=== PATIENT | male | born 1950 | race African-American/Black ===

== ENCOUNTER 2018-07-20 09:12 | Day surgery (SDC) | payer MEDICARE, OTHER ==
[~2018-07-20] VITALS: Ht 172.7 cm; Wt 94.0 kg
[~2018-07-20 09:12] MED LIST: ALEN1TAB3 PO; ALIS300T PO; ASPI81TA42 PO; CALC500T62 PO; CHLO25TA3 PO; DOCU240C PO; DUTA.5 PO; LANS30CA55 PO; LORA-366 PO; MILN50TA PO; MOME17N; OXYC30TA PO; OXYM30TA PO; POTA8TAB4 PO; ROSU10TA22 PO; SODIUM CHLORIDE 0.9% 1,000 ML IV ONE; SPIR25 PO; TAMS0.4C32 PO; VALA500T38 PO; VALS320T2 PO; VERA240C4 PO; [UNRECOGNIZED DRUG - CODE] PO
[2018-07-20] MEDS ORDERED: PROPOFOL 1% 20 ML VIAL IVP ONE (09:13)
[2018-07-20] MEDS ORDERED: LIDOCAINE/PF 2% 5 ML VIAL IM ONE (09:13)
[2018-07-20] MEDS ORDERED: CLOP75TA3 PO (11:48)
[2018-07-20] MEDS ORDERED: OXYGEN THERAPY IH SCH (20:00)
== END 2018-07-23 13:00 | disposition home or self-care (01) ==
LOC: SURGERY 09:12
PROVIDERS: ATTEND Specialist
DX: K22.10 Ulcer of esophagus without bleeding (principal); I10 Essential (primary) hypertension; B37.81 Candidal esophagitis; G89.29 Other chronic pain; I73.9 Peripheral vascular disease, unspecified; J44.9 Chronic obstructive pulmonary disease, unspecified; F17.210 Nicotine dependence, cigarettes, uncomplicated; E66.9 Obesity, unspecified; Z68.30 Body mass index [BMI] 30.0-30.9, adult; Z85.46 Personal history of malignant neoplasm of prostate; Z79.82 Long term (current) use of aspirin; F10.10 Alcohol abuse, uncomplicated; Z79.899 Other long term (current) drug therapy; Z98.890 Other specified postprocedural states
CPT/HCPCS: 43239; 88305; 88312; C1769; J2704; J3490

== ENCOUNTER 2019-01-03 06:15 | Day surgery (SDC) | payer MEDICARE, OTHER ==
[~2019-01-03] VITALS: Ht 172.7 cm; Wt 93.2 kg
[~2019-01-03 06:15] MED LIST changes: -ASPI81TA42 PO; +CLOP75TA3 PO
[2019-01-03] MEDS ORDERED: PROPOFOL 1% 20 ML VIAL IVP ONE (06:16)
[2019-01-03] MEDS ORDERED: LIDOCAINE/PF 2% 5 ML VIAL IM ONE (06:16)
[2019-01-03] MEDS ORDERED: EPINEPHrine 1:10,000 [1 MG/10 ML] SYRINGE ONE (07:41)
[2019-01-03 08:01] LABS: GLUCOMETER DEV NAME(LOC) SDS.; GLUCOSE,POINT OF CARE 98 MG/DL (70-110)
[2019-01-03] MEDS ORDERED: SIMETHICONE DROPS 40 MG/0.6 ML SOLUTION 30 ML ONE (08:08)
[2019-01-03] MEDS ORDERED: POVIDONE-IODINE 10% 15 ML SOLUTION UD ONE (09:16)
== END 2019-01-03 10:40 | disposition home or self-care (01) ==
LOC: SURGERY 06:15
PROVIDERS: ATTEND Student in an Organized Health Care Education/Training Program
DX: K63.5 Polyp of colon (principal); K29.50 Unspecified chronic gastritis without bleeding; D12.4 Benign neoplasm of descending colon; K64.8 Other hemorrhoids; K22.8 Other specified diseases of esophagus; I10 Essential (primary) hypertension; I25.10 Atherosclerotic heart disease of native coronary artery without angina pectoris; I73.9 Peripheral vascular disease, unspecified; G89.29 Other chronic pain; F17.210 Nicotine dependence, cigarettes, uncomplicated; Z86.73 Personal history of transient ischemic attack (TIA), and cerebral infarction without residual deficits; Z86.19 Personal history of other infectious and parasitic diseases; Z85.46 Personal history of malignant neoplasm of prostate; Z72.89 Other problems related to lifestyle; Z79.899 Other long term (current) drug therapy; Z88.0 Allergy status to penicillin; Z95.5 Presence of coronary angioplasty implant and graft; Z97.3 Presence of spectacles and contact lenses; Z98.890 Other specified postprocedural states
CPT/HCPCS: 45385; 45380; 43239; 82962; 88305; 88312; 88313; 93005; C1769; J2704; J3490; J7030; J0171

== ENCOUNTER 2020-01-16 12:00 | Day surgery (SDC) | payer MEDICARE, OTHER ==
[~2020-01-16] VITALS: Ht 174 cm; Wt 95.5 kg
[~2020-01-16 12:00] MED LIST changes: +CLOP-31 PO; -CLOP75TA3 PO; +SODIUM CHLORIDE 0.9% 1,000 ML ONE; +TAMS-13 PO; -TAMS0.4C32 PO; -VALA500T38 PO; +VALA500T42 PO
== END 2020-01-16 14:35 | disposition home or self-care (01) ==
LOC: SURGERY 12:00
PROVIDERS: ATTEND Student in an Organized Health Care Education/Training Program
DX: K29.50 Unspecified chronic gastritis without bleeding (principal); K74.60 Unspecified cirrhosis of liver; I25.10 Atherosclerotic heart disease of native coronary artery without angina pectoris; E78.5 Hyperlipidemia, unspecified; I10 Essential (primary) hypertension; Z20.828 Contact with and (suspected) exposure to other viral communicable diseases; F15.10 Other stimulant abuse, uncomplicated
CPT/HCPCS: 43239; 87635; 88305; 88312; 88313; 93005; J7030

== ENCOUNTER 2022-04-05 11:59 | Emergency (ER) | payer MEDICARE, OTHER ==
[~2022-04-05] VITALS: Ht 172.7 cm; Wt 104.5 kg
[~2022-04-05 11:59] MED LIST changes: -CLOP-31 PO; +CLOP75TA60 PO; -POTA8TAB4 PO; -ROSU10TA22 PO; +ROSU10TA72 PO; +SLOWK8 PO; -SODIUM CHLORIDE 0.9% 1,000 ML IV ONE; -SODIUM CHLORIDE 0.9% 1,000 ML ONE; +SPIR-37 PO; -SPIR25 PO
[2022-04-05] MEDS ORDERED: OxyCODONE HCL/ACETAMINOPHEN 5-325 MG TABLET PO ONE (13:00)
[2022-04-05 13:10] VITALS: BP 135/74
== END 2022-04-05 14:27 | disposition home or self-care (01) ==
LOC: EMS 12:08
DX: S90.32XA Contusion of left foot, initial encounter (principal); I25.10 Atherosclerotic heart disease of native coronary artery without angina pectoris; I11.9 Hypertensive heart disease without heart failure; E78.00 Pure hypercholesterolemia, unspecified; M81.0 Age-related osteoporosis without current pathological fracture; F14.90 Cocaine use, unspecified, uncomplicated; F15.90 Other stimulant use, unspecified, uncomplicated; F12.90 Cannabis use, unspecified, uncomplicated; Z87.891 Personal history of nicotine dependence; Z98.890 Other specified postprocedural states; Z88.0 Allergy status to penicillin; V29.99XA Rider (driver) (passenger) of other motorcycle injured in unspecified traffic accident, initial encounter; Y93.89 Activity, other specified; Y92.89 Other specified places as the place of occurrence of the external cause; Y99.8 Other external cause status
CPT/HCPCS: 82962; 99284

== ENCOUNTER 2022-07-18 12:33 | Emergency (ER) | payer MEDICARE, OTHER ==
[~2022-07-18] VITALS: Ht 172.7 cm; Wt 94.5 kg
[2022-07-18 12:56] LABS: GLUCOSE,POINT OF CARE 117 MG/DL (70-110)
[2022-07-18 17:01] VITALS: BP 135/80
== END 2022-07-18 17:48 | disposition home or self-care (01) ==
LOC: EMS 12:35
DX: S50.02XA Contusion of left elbow, initial encounter (principal); M25.532 Pain in left wrist; M25.522 Pain in left elbow; M25.551 Pain in right hip; I25.10 Atherosclerotic heart disease of native coronary artery without angina pectoris; I10 Essential (primary) hypertension; E78.00 Pure hypercholesterolemia, unspecified; F12.90 Cannabis use, unspecified, uncomplicated; Z98.890 Other specified postprocedural states; Z88.0 Allergy status to penicillin; W19.XXXA Unspecified fall, initial encounter; Y93.01 Activity, walking, marching and hiking; Y92.89 Other specified places as the place of occurrence of the external cause; Y99.9 Unspecified external cause status
CPT/HCPCS: 71045; 73502; 82962; 99283

== ENCOUNTER 2023-05-16 12:14 | Emergency (ER) | payer MEDICARE, OTHER ==
[~2023-05-16] VITALS: Ht 172.7 cm; Wt 85.0 kg
[~2023-05-16 12:14] MED LIST changes: -DUTA.5 PO; +DUTA0.5C38 PO; -OXYC30TA PO; -TAMS-13 PO; +TAMS0.4C94 PO
[2023-05-16 12:38] VITALS: TEMP 97.9
[2023-05-16] MEDS ORDERED: KETOROLAC TROMETHAMINE 60 MG/2 ML VIAL IM ONE (14:30)
[2023-05-16 17:34] VITALS: BP 122/70; PULSE 60; RESP 18
== END 2023-05-16 17:35 | disposition home or self-care (01) ==
LOC: EMS 12:21
DX: S40.012A Contusion of left shoulder, initial encounter (principal); I69.30 Unspecified sequelae of cerebral infarction; I11.9 Hypertensive heart disease without heart failure; E78.00 Pure hypercholesterolemia, unspecified; F14.90 Cocaine use, unspecified, uncomplicated; F12.90 Cannabis use, unspecified, uncomplicated; Z98.890 Other specified postprocedural states; Z88.0 Allergy status to penicillin; W19.XXXA Unspecified fall, initial encounter; Y93.89 Activity, other specified; Y92.89 Other specified places as the place of occurrence of the external cause; Y99.8 Other external cause status
CPT/HCPCS: 99284; 73030; 73110; 73130; 96372; J1885; 29240

== ENCOUNTER 2023-10-18 10:17 | Emergency (ER) | payer MEDICARE, OTHER ==
[~2023-10-18] VITALS: Ht 177.8 cm; Wt 75.0 kg
[2023-10-18 10:26] VITALS: BP 152/77; PULSE 61; RESP 14; TEMP 98.3
[2023-10-18 11:14] LABS: COVID AG,FIA SOURCE NASAL SWAB
[2023-10-18 11:38] LABS: SARS-COV2 (COVID) ANTIGEN,FIA Negative (Negative)
== END 2023-10-18 12:25 | disposition home or self-care (01) ==
LOC: EMS 10:17
DX: J40 Bronchitis, not specified as acute or chronic (principal); R05.9 Cough, unspecified; R53.83 Other fatigue; E11.9 Type 2 diabetes mellitus without complications; I10 Essential (primary) hypertension; F12.90 Cannabis use, unspecified, uncomplicated; F17.210 Nicotine dependence, cigarettes, uncomplicated; Z88.0 Allergy status to penicillin; Z85.46 Personal history of malignant neoplasm of prostate; Z20.822 Contact with and (suspected) exposure to COVID-19
CPT/HCPCS: 99283

== ENCOUNTER 2023-10-30 13:47 | Emergency (ER) | payer MEDICARE, OTHER ==
[~2023-10-30] VITALS: Ht 180.3 cm; Wt 68.2 kg
[2023-10-30 13:52] VITALS: BP 123/77; PULSE 84; RESP 18; TEMP 98.2
[2023-10-30 14:46] LABS: BASOPHILS % (AUTO) 0.6 % (0.0-2.0); EOSINOPHILS % (AUTO) 2.7 % (1.0-6.0); HEMATOCRIT 41.5 % (41-53); HEMOGLOBIN 14.5 g/dL (13.5-17.5); LYMPHOCYTES % (AUTO) 38.6 % (22.0-44.0); MEAN CORPUSCULAR HEMOGLOBIN 34.6 pg (26.0-34.0); MEAN CORPUSCULAR HGB CONC 35.1 G/dL (31.0-37.0); MEAN CORPUSCULAR VOLUME 99 fL (80-100); MONOCYTES # (AUTO) 0.4 K/uL (0.1-1.0); MONOCYTES % (AUTO) 6.9 % (2.0-9.0); NEUTROPHILS # (AUTO) 2.6 K/uL (1.8-7.7); NEUTROPHILS % (AUTO) 51.2 % (40.0-70.0); PLATELET COUNT (AUTO) 247 K/uL (150-450); RED CELL DISTRIBUTION WIDTH 12.7 % (11.5-14.5); WHITE BLOOD COUNT (AUTO) 5.1 K/uL (4.5-11.0)
[2023-10-30 14:59] LABS: ANION GAP 9 mmol/L (8-16); CALCIUM, TOTAL 9.5 mg/dL (8.8-10.5); CARBON DIOXIDE 29 mmol/L (22-29); CHLORIDE 101 mmol/L (98-107); CREATININE 0.72 mg/dL (0.60-1.30); GLOMERULAR FILTR. RATE CALC > 60 mL/min (>60); GLUCOSE,RANDOM 104 mg/dL (70-110); POTASSIUM 3.1 mmol/L (3.5-5.1); SODIUM SERUM 139 mmol/L (136-145); UREA NITROGEN, BLOOD 20 mg/dL (7-18)
[2023-10-30] MEDS ORDERED: SENN-297 PO (17:25)
[2023-10-30] MEDS ORDERED: LOSA1TAB37 PO (17:25)
[2023-10-30] MEDS ORDERED: ATOR20TA65 PO (17:25)
[2023-10-30] MEDS ORDERED: TRAZ-252 PO (17:25)
[2023-10-30] MEDS ORDERED: GABA-1181 PO (17:25)
[2023-10-30] MEDS ORDERED: ALBU18HF12 IH (17:25)
[2023-10-30] MEDS ORDERED: IPRA4AER IH (17:25)
[2023-10-30] MEDS ORDERED: OMEP20CA12 PO (17:25)
[2023-10-30] MEDS ORDERED: METF-1211 PO (17:25)
[2023-10-30] MEDS ORDERED: LINA290C PO (17:25)
[2023-10-30] MEDS ORDERED: CHOL200074 PO (17:25)
[2023-10-30] MEDS ORDERED: AMLO10TA55 PO (17:25)
[2023-10-30 17:44] LABS: TROPONIN I-HIGH SENSITIVITY 7 ng/L (<76)
[2023-10-30] MEDS: POTASSIUM CHLORIDE 20 MEQ ER TABLET PO ONE (17:45)
[2023-10-30] MEDS: SODIUM CHLORIDE 0.9% 1,000 ML IV ONE (18:20)
== END 2023-10-30 19:06 | disposition home or self-care (01) ==
LOC: EMS 14:09
DX: S60.221A Contusion of right hand, initial encounter (principal); R53.1 Weakness; R19.7 Diarrhea, unspecified; R62.7 Adult failure to thrive; E11.9 Type 2 diabetes mellitus without complications; I10 Essential (primary) hypertension; F17.210 Nicotine dependence, cigarettes, uncomplicated; F12.90 Cannabis use, unspecified, uncomplicated; Z88.0 Allergy status to penicillin; W19.XXXA Unspecified fall, initial encounter; Y93.89 Activity, other specified; Y92.89 Other specified places as the place of occurrence of the external cause; Y99.8 Other external cause status; E87.6 Hypokalemia
CPT/HCPCS: 99285; 96360; 71045; 80048; 84484; 85025; 36415; 73130; 93005; J7030